=== PATIENT | male | born 1940 | race Caucasian/White ===

== ENCOUNTER 2019-10-23 09:54 | Inpatient (IN) | payer MEDICARE, BC ==
[2019-10-23] VITALS (17 sets, daily range): BP systolic 94–140; BP diastolic 54–88
[~2019-10-23] VITALS: Ht 182.9 cm; Wt 79.6 kg
[2019-10-23] MEDS ORDERED: PANTOPRAZOLE 80 MG in SODIUM CHLORIDE 0.9% 100 ML IV SCH (10:33)
[2019-10-23] MEDS ORDERED: PANTOPRAZOLE 40 MG IV ONE (10:58)
[2019-10-23] MEDS ORDERED: SODIUM CHLORIDE 0.9% 1,000ML IVBOLUS ONE (11:00)
[2019-10-23] MEDS ORDERED: SODIUM CHLORIDE FLUSH 10ML SYR IVF ONE (11:00)
[2019-10-23] MEDS ORDERED: PANTOPRAZOLE 40 MG IV IVPush ONE (11:00)
--- NOTE | 2019-10-23 11:10 | NUR ---
REPORT FROM ZAY, ASSUME CARE OF PT AT THIS TIME.
[2019-10-23 11:22] LABS: INTERNATIONAL NORMALIZED RATIO 3.17 (0.93-1.1); PROTHROMBIN TIME 31.8 Seconds (9.6-11.5)
[2019-10-23 11:29] LABS: ALANINE AMINOTRANSFERASE 23 U/L (12-78); ALBUMIN 2.7 g/dL (3.4-5.0); ANION GAP 12 mmol/L (5-15); CHLORIDE 110 mmol/L (98-107); CREATININE 1.81 mg/dL (0.7-1.3); MEAN CORPUSCULAR HEMOGLOBIN 34.4 pg (27.5-34.5); MEAN CORPUSCULAR HGB CONC 32.6 g/dL (33.2-36.2); MEAN CORPUSCULAR VOLUME 105.6 fL (81-97); MEAN PLATELET VOLUME 8.3 fL (7.4-10.4); PLATELET COUNT 214 x10^3/uL (130-400); RED BLOOD COUNT 2.13 x10^6/uL (4.38-5.82); RED CELL DISTRIBUTION WIDTH 14.5 % (9.4-14.8)
[2019-10-23 11:31] LABS: ALKALINE PHOSPHATASE 63 U/L (45-117); BILIRUBIN,TOTAL 0.3 mg/dL (0.2-1.0); TOTAL PROTEIN 5.5 g/dL (6.4-8.2)
[2019-10-23] MEDS ORDERED: BIFI4CAP PO (12:01)
[2019-10-23] MEDS ORDERED: ACET-1600 PO (12:01)
[2019-10-23] MEDS ORDERED: MELO15TA24 PO (12:01)
[2019-10-23] MEDS ORDERED: OMEP20TA62 PO (12:01)
[2019-10-23] MEDS ORDERED: WARF2.5T32 PO (12:01)
[2019-10-23] MEDS ORDERED: SIMV40TA3 PO (12:01)
[2019-10-23] MEDS ORDERED: EYE VITAMIN PO (12:01)
[2019-10-23] MEDS ORDERED: LISI-170 PO (12:01)
[2019-10-23 12:21] LABS: BASOPHILS # (AUTO) 0.02 x10^3/uL (0-0.1); BASOPHILS % (AUTO) 0 % (0-1); EOSINOPHILS % (AUTO) 0 % (1-7); LYMPHOCYTES # (AUTO) 0.43 x10^3/uL (1-3.4); LYMPHOCYTES % (AUTO) 5 % (22-44); MD SCAN; MONOCYTES # (AUTO) 0.62 x10^3/uL (0.2-0.8); MONOCYTES % (AUTO) 7 % (2-9); NEUTROPHILS # (AUTO) 8.37 x10^3/uL (1.8-6.8); NEUTROPHILS % (AUTO) 89 % (42-75)
--- NOTE | 2019-10-23 12:22 | NUR ---
REPORT TO PAIGE RN, PT READY FOR TRANSPORT. MECHE PAC IN TO SEE PT, CRITICAL H/H REPORTED TO HER. PAC TO INPUT NEW TRANSFUSION ORDERS.
[2019-10-23] MEDS ORDERED: ONDANSETRON 2MG/ML, 2ML IVPush PRN (12:30)
[2019-10-23] MEDS ORDERED: hydrALAzine 20 MG/ML, 1ML IVPush PRN (12:30)
[2019-10-23] MEDS ORDERED: SODIUM CHLORIDE 0.9% 1,000 ML IV SCH (13:00)
[2019-10-23] MEDS ORDERED: METHOCARBAMOL 500 MG TABLET PO PRN (13:00)
[2019-10-23] MEDS ORDERED: ACETAMINOPHEN 325 MG TABLET PO PRN (13:00)
[2019-10-23] MEDS ORDERED: MORPHINE SULFATE 4 MG/ML, 1ML IVPush PRN (13:00)
[2019-10-23] MEDS ORDERED: PHARMACY MAY ADJ FOR RENAL FX MC PRN (13:00)
[2019-10-23] MEDS: PANTOPRAZOLE 80 MG in SODIUM CHLORIDE 0.9% 100 ML IV SCH (20:19)
[2019-10-23 22:10] LABS: INTERNATIONAL NORMALIZED RATIO 1.9 (0.93-1.1); PROTHROMBIN TIME 19.5 Seconds (9.6-11.5)
[2019-10-24] VITALS (11 sets, daily range): BP systolic 101–148; BP diastolic 62–90
[2019-10-24 05:18] LABS: INTERNATIONAL NORMALIZED RATIO 1.77 (0.93-1.1); PROTHROMBIN TIME 18.2 Seconds (9.6-11.5)
[2019-10-24 05:19] LABS: BASOPHILS # (AUTO) 0.03 x10^3/uL (0-0.1); BASOPHILS % (AUTO) 0 % (0-1); EOSINOPHILS # (AUTO) 0.02 x10^3/uL (0-0.4); EOSINOPHILS % (AUTO) 0 % (1-7); LYMPHOCYTES # (AUTO) 0.87 x10^3/uL (1-3.4); LYMPHOCYTES % (AUTO) 13 % (22-44); MD NO; MEAN CORPUSCULAR HGB CONC 33.5 g/dL (33.2-36.2); MEAN CORPUSCULAR VOLUME 95.8 fL (81-97); MEAN PLATELET VOLUME 8.2 fL (7.4-10.4); MONOCYTES # (AUTO) 0.58 x10^3/uL (0.2-0.8); MONOCYTES % (AUTO) 8 % (2-9); NEUTROPHILS # (AUTO) 5.41 x10^3/uL (1.8-6.8); NEUTROPHILS % (AUTO) 78 % (42-75); PLATELET COUNT 175 x10^3/uL (130-400); RED BLOOD COUNT 2.52 x10^6/uL (4.38-5.82); RED CELL DISTRIBUTION WIDTH 21.1 % (9.4-14.8)
[2019-10-24 05:21] LABS: ANION GAP 8 mmol/L (5-15); CALCIUM 8.4 mg/dL (8.5-10.1); CHLORIDE 115 mmol/L (98-107)
[2019-10-24 05:22] LABS: CREATININE 1.53 mg/dL (0.7-1.3)
[2019-10-24] MEDS: PANTOPRAZOLE 80 MG in SODIUM CHLORIDE 0.9% 100 ML IV SCH (06:58)
[2019-10-24] MEDS ORDERED: CYANOCOBALAMIN 1,000 MCG/ML, 1ML IM ONE (08:30)
[2019-10-24] MEDS ORDERED: hydrALAzine 20 MG/ML, 1ML IV PRN (09:30)
[2019-10-24] MEDS ORDERED: ONDANSETRON 2MG/ML, 2ML IV PRN (09:30)
[2019-10-24] MEDS ORDERED: ACETAMINOPHEN 325 MG TABLET PO PRN (09:30)
[2019-10-24] MEDS ORDERED: FENTANYL PF 100 MCG/2ML IV PRN (09:30)
[2019-10-24] MEDS ORDERED: OXYcodone 5 MG/5 ML ORAL.SOL UDC PO PRN (09:30)
[2019-10-24] MEDS ORDERED: PROPOFOL 10 MG/ML, 50ML ONE (09:30)
[2019-10-24] MEDS ORDERED: PROPOFOL 10 MG/ML, 20ML ONE (09:30)
[2019-10-24] MEDS ORDERED: METOPROLOL 1 MG/ML, 5ML IV PRN (09:30)
[2019-10-24] MEDS: CYANOCOBALAMIN 1,000 MCG TABLET PO SCH (11:45)
[2019-10-24] MEDS ORDERED: PANTOPRAZOLE 20MG TABLET PO SCH (16:00)
[2019-10-24] MEDS: SODIUM CHLORIDE 0.9% 1,000 ML IV SCH (17:16)
[2019-10-24] MEDS: PANTOPROZOLE 40MG TABLET PO SCH (17:16)
[2019-10-24 20:22] LABS: MEAN CORPUSCULAR HEMOGLOBIN 32.2 pg (27.5-34.5); MEAN CORPUSCULAR HGB CONC 32.8 g/dL (33.2-36.2); MEAN CORPUSCULAR VOLUME 98.3 fL (81-97); MEAN PLATELET VOLUME 7.9 fL (7.4-10.4); PLATELET COUNT 173 x10^3/uL (130-400); RED BLOOD COUNT 2.12 x10^6/uL (4.38-5.82); RED CELL DISTRIBUTION WIDTH 20.8 % (9.4-14.8)
[2019-10-24 21:19] LABS: MD YES
[2019-10-24 21:20] LABS: <PLATELET ESTIMATE> ADEQUATE; <PLT MORPHOLOGY> NORMAL PLT MORPH; ANISOCYTOSIS 1+; HYPOCHROMIA 1+; LYMPH#(MANUAL) 0.41 x10^3/uL (1-3.4); LYMPHS% (MANUAL) 8 % (22-44); MICROCYTOSIS 1+; MONOS#(MANUAL) 0.41 x10^3/uL (0.3-2.7); MONOS% (MANUAL) 8 % (2-9); POLYCHROMASIA 1+; SEG#(MANUAL) 4.28 x10^3/uL (1.8-6.8); SEGS% (MANUAL) 84 % (42-75)
[2019-10-25] VITALS (8 sets, daily range): BP systolic 115–149; BP diastolic 66–84
[2019-10-25] MEDS: SODIUM CHLORIDE 0.9% 1,000 ML IV SCH ×3 (01:24→22:17)
[2019-10-25 05:33] LABS: BASOPHILS # (AUTO) 0.01 x10^3/uL (0-0.1); BASOPHILS % (AUTO) 0 % (0-1); EOSINOPHILS # (AUTO) 0.08 x10^3/uL (0-0.4); EOSINOPHILS % (AUTO) 2 % (1-7); LYMPHOCYTES % (AUTO) 14 % (22-44); MD NO; MEAN CORPUSCULAR HEMOGLOBIN 31.6 pg (27.5-34.5); MEAN CORPUSCULAR HGB CONC 32.8 g/dL (33.2-36.2); MEAN CORPUSCULAR VOLUME 96.1 fL (81-97); MEAN PLATELET VOLUME 8.2 fL (7.4-10.4); MONOCYTES # (AUTO) 0.48 x10^3/uL (0.2-0.8); MONOCYTES % (AUTO) 10 % (2-9); NEUTROPHILS # (AUTO) 3.73 x10^3/uL (1.8-6.8); NEUTROPHILS % (AUTO) 75 % (42-75); PLATELET COUNT 159 x10^3/uL (130-400); RED BLOOD COUNT 2.69 x10^6/uL (4.38-5.82); RED CELL DISTRIBUTION WIDTH 19.2 % (9.4-14.8)
[2019-10-25 05:39] LABS: CHLORIDE 115 mmol/L (98-107)
[2019-10-25 05:48] LABS: ALANINE AMINOTRANSFERASE 18 U/L (12-78); ALBUMIN 2.3 g/dL (3.4-5.0); ALKALINE PHOSPHATASE 31 U/L (45-117); ANION GAP 6 mmol/L (5-15); BILIRUBIN,TOTAL 0.8 mg/dL (0.2-1.0); CALCIUM 8.4 mg/dL (8.5-10.1); CREATININE 1.23 mg/dL (0.7-1.3); TOTAL PROTEIN 4.7 g/dL (6.4-8.2)
[2019-10-25 05:52] LABS: INTERNATIONAL NORMALIZED RATIO 1.69 (0.93-1.1); PROTHROMBIN TIME 17.4 Seconds (9.6-11.5)
[2019-10-25] MEDS: PANTOPROZOLE 40MG TABLET PO SCH ×2 (08:53→16:51)
[2019-10-25] MEDS: CYANOCOBALAMIN 1,000 MCG TABLET PO SCH (08:53)
[2019-10-25] MEDS ORDERED: LIDOCAINE 1%, 10ML ONE (10:33)
[2019-10-25] MEDS ORDERED: MIDAZOLAM 1 MG/ML, 5ML ONE (11:03)
[2019-10-25] MEDS ORDERED: NALOXONE 1 MG/ML, 2ML ONE (11:03)
[2019-10-25] MEDS ORDERED: FLUMAZENIL 0.1 MG/1 ML, 5ML ONE (11:03)
[2019-10-25] MEDS ORDERED: FENTANYL PF 100 MCG/2ML ONE (11:03)
[2019-10-25] MEDS: DOCUSATE 100 MG CAPSULE PO PRN (15:37)
[2019-10-26 00:54] VITALS: BP 151/88
[2019-10-26] MEDS: DOCUSATE 100 MG CAPSULE PO PRN (05:25)
[2019-10-26] MEDS: SODIUM CHLORIDE 0.9% 1,000 ML IV SCH ×2 (05:25→17:19)
[2019-10-26 05:46] LABS: ANION GAP 7 mmol/L (5-15); CALCIUM 7.8 mg/dL (8.5-10.1); CHLORIDE 114 mmol/L (98-107)
[2019-10-26 05:47] LABS: CREATININE 1.16 mg/dL (0.7-1.3)
[2019-10-26 05:51] LABS: BASOPHILS # (AUTO) 0.02 x10^3/uL (0-0.1); BASOPHILS % (AUTO) 1 % (0-1); EOSINOPHILS # (AUTO) 0.05 x10^3/uL (0-0.4); EOSINOPHILS % (AUTO) 2 % (1-7); LYMPHOCYTES % (AUTO) 15 % (22-44); MD NO; MEAN CORPUSCULAR HEMOGLOBIN 31.6 pg (27.5-34.5); MEAN CORPUSCULAR VOLUME 95.8 fL (81-97); MEAN PLATELET VOLUME 7.3 fL (7.4-10.4); MONOCYTES # (AUTO) 0.35 x10^3/uL (0.2-0.8); MONOCYTES % (AUTO) 10 % (2-9); NEUTROPHILS # (AUTO) 2.52 x10^3/uL (1.8-6.8); NEUTROPHILS % (AUTO) 73 % (42-75); PLATELET COUNT 167 x10^3/uL (130-400); RED BLOOD COUNT 2.42 x10^6/uL (4.38-5.82)
[2019-10-26 07:32] VITALS: BP 132/82
[2019-10-26] MEDS: CYANOCOBALAMIN 1,000 MCG TABLET PO SCH (08:27)
[2019-10-26] MEDS: PANTOPROZOLE 40MG TABLET PO SCH ×2 (08:27→17:19)
[2019-10-26 13:32] VITALS: BP 121/75
[2019-10-26] MEDS ORDERED: MAGNESIUM SULFATE PMX 2GM/50ML 50 ML IV ONE (15:00)
[2019-10-26] MEDS ORDERED: GABA-826 PO (15:13)
[2019-10-26] MEDS ORDERED: MAGN70TA2 PO (15:13)
[2019-10-26] MEDS ORDERED: PANT40TA5 PO (15:13)
[2019-10-26] MEDS ORDERED: METH500T7 PO (15:13)
[2019-10-26] MEDS ORDERED: CYAN-27 PO (15:13)
[2019-10-26] MEDS ORDERED: MAGNESIUM CHLORIDE 64 MG TABLET.DR PO SCH (21:00)
== END 2019-10-26 18:11 | disposition home or self-care (01) | DRG 356 ==
LOC: ED 11:18 → EDIP 12:00 → 4WST 12:44
PROVIDERS: ADMIT Internal Medicine Infectious Disease; ATTEND Internal Medicine
PROC: 30233K1 Transfusion of Nonautologous Frozen Plasma into Peripheral Vein, Percutaneous Approach (ICD-10-PCS; 2019-10-23)
PROC: 30233N1 Transfusion of Nonautologous Red Blood Cells into Peripheral Vein, Percutaneous Approach (ICD-10-PCS; 2019-10-23)
PROC: 0W3P8ZZ Control Bleeding in Gastrointestinal Tract, Via Natural or Artificial Opening Endoscopic (ICD-10-PCS; 2019-10-24)
PROC: 0DB68ZX Excision of Stomach, Via Natural or Artificial Opening Endoscopic, Diagnostic (ICD-10-PCS; 2019-10-24)
PROC: 06H03DZ Insertion of Intraluminal Device into Inferior Vena Cava, Percutaneous Approach (ICD-10-PCS; principal; 2019-10-25)
DX: K26.4 Chronic or unspecified duodenal ulcer with hemorrhage (principal); N17.0 Acute kidney failure with tubular necrosis; D62 Acute posthemorrhagic anemia; E87.2 Acidosis; D68.59 Other primary thrombophilia; I82.411 Acute embolism and thrombosis of right femoral vein; D75.89 Other specified diseases of blood and blood-forming organs; E53.8 Deficiency of other specified B group vitamins; E78.5 Hyperlipidemia, unspecified; G89.29 Other chronic pain; I10 Essential (primary) hypertension; R73.9 Hyperglycemia, unspecified; K21.0 Gastro-esophageal reflux disease with esophagitis; K44.9 Diaphragmatic hernia without obstruction or gangrene; Z66 Do not resuscitate; Z79.01 Long term (current) use of anticoagulants; Z79.899 Other long term (current) drug therapy; Z85.46 Personal history of malignant neoplasm of prostate; Z86.718 Personal history of other venous thrombosis and embolism; Z90.79 Acquired absence of other genital organ(s); Z92.3 Personal history of irradiation; Z95.828 Presence of other vascular implants and grafts
CPT/HCPCS: 36415; 36430; 37191; 76937; 80048; 80053; 82607; 82728; 83540; 83550; 83735; 84466; 85014; 85018; 85025; 85610; 85730; 86850; 86900; 86923; 88305; 93970; 96365; C1880; G0378; J2250; J2704; J3010; C1769; C9113; J2310; J3420; J3475; J7030; P9016; P9017

== ENCOUNTER 2019-11-19 08:44 | Emergency (ER) | payer MEDICARE, BC ==
[~2019-11-19] VITALS: Ht 182.9 cm; Wt 84.1 kg
[~2019-11-19 08:44] MED LIST: ACET-1600 PO; BIFI4CAP PO; CYAN-27 PO; EYE VITAMIN PO; GABA-826 PO; LISI-170 PO; MAGN70TA2 PO; MELO15TA24 PO; METH500T7 PO; OMEP20TA62 PO; PANT40TA5 PO; SIMV40TA3 PO; WARF2.5T32 PO
--- NOTE | 2019-11-19 09:16 | NUR ---
ERP AT BEDSIDE. EKG COMPLETE. PT DENIES ANY CURRENT NEEDS OR CONCERNS. CALL LIGHT IN REACH.
[2019-11-19] MEDS ORDERED: SODIUM CHLORIDE FLUSH 10ML SYR IVF ONE (09:30)
--- NOTE | 2019-11-19 09:47 | NUR ---
ULTRASOUND AT BEDSIDE. IV LINE STARTED, LABS DRAWN AND SENT. PT DENIES ANY NEEDS AT THIS TIME.
[2019-11-19 10:02] LABS: MEAN CORPUSCULAR HGB CONC 31.8 g/dL (33.2-36.2); MEAN PLATELET VOLUME 7.4 fL (7.4-10.4); PLATELET COUNT 241 x10^3/uL (130-400); RED BLOOD COUNT 2.61 x10^6/uL (4.38-5.82); RED CELL DISTRIBUTION WIDTH 19.5 % (9.4-14.8)
[2019-11-19 10:12] LABS: ALBUMIN 3.1 g/dL (3.4-5.0); ANION GAP 7 mmol/L (5-15); CALCIUM 8.5 mg/dL (8.5-10.1); CHLORIDE 110 mmol/L (98-107); CREATININE 1.59 mg/dL (0.7-1.3); INTERNATIONAL NORMALIZED RATIO 1.52 (0.93-1.1); PROTHROMBIN TIME 15.7 Seconds (9.6-11.5)
[2019-11-19 10:15] LABS: MD YES
[2019-11-19 10:16] LABS: TROPONIN I 0.035 ng/mL (0.000-0.045)
[2019-11-19 10:18] LABS: ANISOCYTOSIS 1+; BASOS#(MANUAL) 0.05 x10^3/uL (0-0.1); BASOS% (MANUAL) 2 % (0-1); EOS#(MANUAL) 0.03 x10^3/uL (0.0-0.4); EOS% (MANUAL) 1 % (1-7); LYMPH#(MANUAL) 0.24 x10^3/uL (1-3.4); LYMPHS% (MANUAL) 9 % (22-44); MONOS#(MANUAL) 0.51 x10^3/uL (0.3-2.7); MONOS% (MANUAL) 19 % (2-9); SEG#(MANUAL) 1.86 x10^3/uL (1.8-6.8); SEGS% (MANUAL) 69 % (42-75)
[2019-11-19 10:19] LABS: HYPOCHROMIA 1+; OVALOCYTES 1+; TEAR DROPS 1+
[2019-11-19 10:20] LABS: <PLATELET ESTIMATE> ADEQUATE; <PLT MORPHOLOGY> NORMAL PLT MORPH; POLYCHROMASIA 1+
[2019-11-19] MEDS ORDERED: CEFTRIAXONE PMX 1GM/50ML 50 ML IV ONE (10:30)
[2019-11-19] MEDS ORDERED: CEFTRIAXONE PMX 1GM/50ML 50 ML ONE (10:38)
--- NOTE | 2019-11-19 10:46 | NUR ---
received report from clifton perry. assumed care of patient.
--- NOTE | 2019-11-19 11:12 | NUR ---
BLOOD AT BEDSIDE. ANTIBIOTIC STILL INFUSING AT THIS TIME. PT DENIES ANY NEEDS OR CONCERNS, CALL LIGHT IN REACH.
[2019-11-19 11:26] VITALS: BP 151/76
[2019-11-19 11:43] VITALS: BP 156/88
--- NOTE | 2019-11-19 12:36 | NUR ---
blood running, patient sitting in bed, no complaints.
[2019-11-19 13:09] VITALS: BP 156/85
--- NOTE | 2019-11-19 13:10 | NUR ---
BLOOD COMPLETED, PT REPORTS FEELING BETTER THAN WHEN HE CAME IN.
[2019-11-19 14:02] VITALS: BP 152/77
== END 2019-11-19 14:05 | disposition home or self-care (01) ==
LOC: ED 10:03
DX: J15.9 Unspecified bacterial pneumonia (principal); I82.511 Chronic embolism and thrombosis of right femoral vein; I10 Essential (primary) hypertension; D53.9 Nutritional anemia, unspecified; Z91.040 Latex allergy status; Z88.8 Allergy status to other drugs, medicaments and biological substances
CPT/HCPCS: 36415; 71046; 80048; 82040; 83880; 84484; 85025; 85610; 85730; 86850; 86900; 86923; 93005; 93971; 96365; 99284; J0696; P9016

== ENCOUNTER → 2020-08-11 | Outpatient (CLI) | payer MEDICARE, BC ==
[~2020-08-11] MED LIST changes: +APIX2.5T PO; +CETI10TA76 PO; +FERR324T5 PO; +GABA300C PO; -PANT40TA5 PO; +PANT40TA6 PO; +SIMV40TA20 PO; -SIMV40TA3 PO; +VIT1CAPS42 PO
[2020-08-11 13:03] LABS: BASOPHILS # (AUTO) 0.04 x10^3/uL (0-0.1); BASOPHILS % (AUTO) 1 % (0-1); EOSINOPHILS # (AUTO) 0.07 x10^3/uL (0-0.4); EOSINOPHILS % (AUTO) 1 % (1-7); LYMPHOCYTES # (AUTO) 0.73 x10^3/uL (1-3.4); LYMPHOCYTES % (AUTO) 14 % (22-44); MD NO; MEAN CORPUSCULAR HEMOGLOBIN 31.4 pg (27.5-34.5); MEAN CORPUSCULAR HGB CONC 32.4 g/dL (33.2-36.2); MEAN CORPUSCULAR VOLUME 96.9 fL (81-97); MEAN PLATELET VOLUME 8.4 fL (7.4-10.4); MONOCYTES # (AUTO) 0.51 x10^3/uL (0.2-0.8); MONOCYTES % (AUTO) 10 % (2-9); NEUTROPHILS # (AUTO) 3.81 x10^3/uL (1.8-6.8); NEUTROPHILS % (AUTO) 74 % (42-75); PLATELET COUNT 248 x10^3/uL (130-400); RED BLOOD COUNT 4.04 x10^6/uL (4.38-5.82); RED CELL DISTRIBUTION WIDTH 14.2 % (9.4-14.8)
[2020-08-11 13:06] LABS: MICROSCOPIC NOT IND
[2020-08-11 13:11] LABS: CHLORIDE 108 mmol/L (98-107)
[2020-08-11 13:23] LABS: ALANINE AMINOTRANSFERASE 25 U/L (12-78); ALBUMIN 3.4 g/dL (3.4-5.0); ALKALINE PHOSPHATASE 88 U/L (45-117); ANION GAP 6 mmol/L (5-15); BILIRUBIN,TOTAL 0.5 mg/dL (0.2-1.0); CALCIUM 9.6 mg/dL (8.5-10.1); CREATININE 1.49 mg/dL (0.7-1.3)
== END | disposition home or self-care (01) ==
LOC: STAR 11:22
PROVIDERS: ATTEND Orthopaedic Surgery
DX: Z01.818 Encounter for other preprocedural examination (principal); Z20.828 Contact with and (suspected) exposure to other viral communicable diseases; M17.0 Bilateral primary osteoarthritis of knee
CPT/HCPCS: 36415; 80053; 81003; 85025; 87081; 87147; 87635; 87806; 93005; G0475

== ENCOUNTER 2020-08-15 06:05 | Observation (INO) | payer MEDICARE, BC ==
[~2020-08-15] VITALS: Ht 182.9 cm; Wt 87.6 kg
[2020-08-15] MEDS ORDERED: morphine SULFATE/PF 1 MG/ML, 10ML ONE (06:32)
[2020-08-15] MEDS ORDERED: KETOROLAC 60 MG/2 ML ONE (06:33)
[2020-08-15] MEDS ORDERED: SODIUM CHLORIDE 0.9% 50 ML ONE (06:33)
[2020-08-15] MEDS ORDERED: ROPIvacaine/PF 0.2%, 20 ML ONE ×2 (06:33→06:44)
[2020-08-15] MEDS ORDERED: TRANEXAMIC ACID 100 MG/ML, 10ML ONE (06:33)
[2020-08-15] MEDS ORDERED: EPINEPHRINE 1 MG/ML, 1ML ONE (06:34)
[2020-08-15] MEDS ORDERED: BACITRACIN 50,000 UNIT ONE (06:34)
[2020-08-15] MEDS ORDERED: LACTATED RINGERS 1,000 ML IV SCH (06:35)
[2020-08-15] MEDS ORDERED: FENTANYL PF 250 MCG/5ML ONE ×2 (06:36→08:19)
[2020-08-15] MEDS ORDERED: GLYCOPYRROLATE 0.2MG/1ML, 5ML ONE (06:39)
[2020-08-15] MEDS ORDERED: CEFAZOLIN 1,000 MG ONE (06:39)
[2020-08-15] MEDS ORDERED: PROPOFOL 10 MG/ML, 20ML ONE (06:39)
[2020-08-15] MEDS ORDERED: NEOSTIGMINE 1 MG/ML, 10ML ONE (06:39)
[2020-08-15] MEDS ORDERED: PHENYLEPHRINE 10 MG/ML ONE (06:43)
[2020-08-15] MEDS ORDERED: hydrALAzine 20 MG/ML, 1ML IV PRN (07:00)
[2020-08-15] MEDS ORDERED: LABETALOL 5MG/ML, 20ML IV PRN (07:00)
[2020-08-15] MEDS ORDERED: VANCOMYCIN PMX 1GM/200ML 200 ML IV ONE (07:00)
[2020-08-15] MEDS ORDERED: ONDANSETRON 2MG/ML, 2ML IVPush PRN ×2 (07:00→07:30)
[2020-08-15] MEDS ORDERED: HYDROmorphone 1 MG/ML, 1ML INJ IVPush PRN (07:00)
[2020-08-15] MEDS ORDERED: MEPERIDINE/PF 25MG/0.5ML IVPush PRN (07:00)
[2020-08-15] MEDS ORDERED: CHLORHEXIDINE 15 ML UDC MM ONE (07:00)
[2020-08-15] MEDS ORDERED: ACETAMINOPHEN 325 MG TABLET PO PRN ×2 (07:00→07:30)
[2020-08-15] MEDS ORDERED: morphine SULFATE 10 MG/ML, 1ML IVPush PRN ×2 (07:00→07:30)
[2020-08-15] MEDS ORDERED: ROCURONIUM 10MG/ML,5ML ONE (07:24)
[2020-08-15] MEDS: D5%-0.45% NACL 1,000 ML IV SCH ×3 (07:26→20:00)
[2020-08-15] MEDS ORDERED: LORazepam 2 MG/ML, 1ML IVPush PRN (07:30)
[2020-08-15] MEDS ORDERED: DIPHENHYDRAMINE 50 MG CAPSULE PO PRN (07:30)
[2020-08-15] MEDS ORDERED: ZOLPIDEM 5MG TABLET PO PRN (07:30)
[2020-08-15] MEDS ORDERED: VANCOMYCIN PMX 1GM/200ML 200 ML IVPB ONE (07:30)
[2020-08-15] MEDS: FENTANYL PF 100 MCG/2ML IV PRN ×3 (09:55→10:19)
[2020-08-15] MEDS ORDERED: FENTANYL PF 100 MCG/2ML ONE (09:56)
[2020-08-15] MEDS ORDERED: OXYcodone 5 MG/5 ML ORAL.SOL UDC ONE (09:56)
[2020-08-15] MEDS: OXYcodone 5 MG/5 ML ORAL.SOL UDC PO PRN ×2 (10:00→10:28)
[2020-08-15] MEDS ORDERED: MORPHINE SULFATE 4 MG/ML, 1ML ONE (10:29)
[2020-08-15 13:00] VITALS: BP 145/79
[2020-08-15] MEDS ORDERED: TRANEXAMIC ACID 1,000 MG in SODIUM CHLORIDE 0.9% 100 ML IV ONE (13:00)
[2020-08-15] MEDS: FERROUS GLUCONATE 324 MG TABLET PO SCH (15:59)
[2020-08-15] MEDS: CEFAZOLIN PMX 2GM/50ML 50 ML IVPB SCH (17:31)
[2020-08-15 19:27] VITALS: BP 150/93
[2020-08-15] MEDS: OXYcodone/APAP 7.5/325MG TABLET PO PRN (20:44)
[2020-08-15] MEDS: GABAPENTIN 300 MG CAPSULE PO SCH (20:44)
[2020-08-15] MEDS: APIXABAN 2.5 MG TABLET PO SCH (20:44)
[2020-08-15] MEDS ORDERED: OMEPRAZOLE 20 MG CAPSULE.DR PO SCH (21:00)
[2020-08-15] MEDS ORDERED: LISINOPRIL 20 MG TABLET PO SCH (21:00)
[2020-08-15 23:21] VITALS: BP 144/84
[2020-08-16] MEDS: D5%-0.45% NACL 1,000 ML IV SCH ×4 (01:00→15:21)
[2020-08-16] MEDS: CEFAZOLIN PMX 2GM/50ML 50 ML IVPB SCH ×2 (01:10→09:01)
[2020-08-16] MEDS: OXYcodone/APAP 7.5/325MG TABLET PO PRN ×4 (01:10→15:20)
[2020-08-16 01:35] VITALS: BP 132/70
[2020-08-16 04:40] VITALS: BP 144/82
[2020-08-16 08:10] VITALS: BP 129/75
[2020-08-16] MEDS ORDERED: SIMVASTATIN 40 MG TABLET PO SCH (09:00)
[2020-08-16] MEDS ORDERED: DOCUSATE 100 MG CAPSULE PO SCH (09:00)
[2020-08-16] MEDS ORDERED: CETIRIZINE 10 MG TABLET PO SCH (09:00)
[2020-08-16] MEDS ORDERED: MULTIVITS,STRESS FORMULA 1 TABLET PO SCH (09:00)
[2020-08-16] MEDS: ASPIRIN 325 MG TABLET EC PO SCH ×2 (09:01→15:19)
[2020-08-16] MEDS: GABAPENTIN 300 MG CAPSULE PO SCH (09:01)
[2020-08-16] MEDS: APIXABAN 2.5 MG TABLET PO SCH (09:01)
[2020-08-16 13:18] VITALS: BP 138/82
[2020-08-16] MEDS: FERROUS GLUCONATE 324 MG TABLET PO SCH (15:21)
== END 2020-08-16 15:36 | disposition home or self-care (01) ==
LOC: OUT 06:05 → 4NE 10:48 → OUT 11:09 → DCLOUNGE 08-16 15:27
PROVIDERS: ADMIT Orthopaedic Surgery; ATTEND Orthopaedic Surgery
DX: M17.11 Unilateral primary osteoarthritis, right knee (principal); I10 Essential (primary) hypertension; K21.9 Gastro-esophageal reflux disease without esophagitis; E78.5 Hyperlipidemia, unspecified; Z86.711 Personal history of pulmonary embolism; Z91.040 Latex allergy status; Z79.899 Other long term (current) drug therapy; Z79.01 Long term (current) use of anticoagulants; Z85.46 Personal history of malignant neoplasm of prostate; Z86.718 Personal history of other venous thrombosis and embolism; Z87.891 Personal history of nicotine dependence
CPT/HCPCS: 27447; 36415; 73564; 85018; 96365; 96366; 96367; 97110; 97161; 97165; 97530; C1713; C1776; G0378; J0171; J0690; J2270; J2274; J2370; J2704; J2710; J2795; J3010; J3370; J7120; J1885